=== PATIENT | male | born 1985 | race Caucasian/White ===

== ENCOUNTER 2020-07-13 12:32 | Emergency (ER) | payer OTHER ==
[~2020-07-13] VITALS: Ht 175.3 cm; Wt 69.8 kg
[2020-07-13 13:25] LABS: BASO % 0.7 % (0.0-1.0); EOS % 0.4 % (0.0-3.0); HEMATOCRIT 45.6 % (42.0-52.0); HEMOGLOBIN 15.1 g/dl (13.5-17.5); MEAN CORPUSCULAR HEMOGLOBIN 31.1 pg (27.0-33.0); MEAN CORPUSCULAR HGB CONC 33.1 g/dl (32.0-36.5); MONO # 0.4 10^3/uL (0.0-0.8); MONO % 7.6 % (0.0-5.0); NEUTROPHILS % 72.9 % (36.0-66.0); PLATELET COUNT, AUTOMATED 279 10^3/uL (150-450); RED BLOOD COUNT 4.85 10^6/uL (4.30-6.10); WHITE BLOOD COUNT 5.4 10^3/uL (4.0-10.0)
[2020-07-13 14:07] LABS: ALBUMIN 4.2 GM/DL (3.2-5.2); ALT/SGPT 29 U/L (12-78); BILIRUBIN,DIRECT < 0.1 MG/DL (0.0-0.2); BILIRUBIN,TOTAL 0.4 MG/DL (0.2-1.0); LIPASE 148 U/L (73-393); TOTAL PROTEIN 7.8 GM/DL (6.4-8.2)
[2020-07-13 14:34] LABS: AMPHETAMINES LEVEL URINE NEGATIVE (NEGATIVE); BARBITURATES URINE NEGATIVE (NEGATIVE); BENZODIAZEPINES URINE NEGATIVE (NEGATIVE); CANNABINOIDS URINE NEGATIVE (NEGATIVE); COCAINE METABOLITE URINE NEGATIVE (NEGATIVE); METHADONE URINE NEGATIVE (NEGATIVE); OPIATES URINE NEGATIVE (NEGATIVE); PHENCYCLIDINE URINE NEGATIVE (NEGATIVE)
[2020-07-13 15:30] VITALS: BP 152/85
--- NOTE | 2020-07-13 19:02 | ECGEPIP ---
[facility] - ED Test Date: 2020-07-13 Pat Name: SARIKA VENCES Department: Room: - Gender: Male Media Marketing Specialist: prasanna : 1985 Requested By: Brock Bhat Order Number: [id number] Reading MD: Inez Lerma Measurements Intervals [place] Rate: 71 P: 75 MA: 151 QRS: 57 QRSD: 108 T: 6 QT: 414 QTc: 451 Interpretive Statements SINUS RHYTHM NO PRIOR Electronically Signed on 07-13-2020 19:02:38 EST by Inez Lerma
== END 2020-07-13 15:44 | disposition home or self-care (01) ==
LOC: M ED 12:32
DX: R07.89 Other chest pain (principal); F41.9 Anxiety disorder, unspecified